=== PATIENT | male | born 1985 ===

== ENCOUNTER 2017-12-01 18:09 | Emergency (ER) | payer SELFPAY ==
[2017-12-01] MEDS ORDERED: Acetaminophen TAB* 325 MG PO ONE (19:18)
--- NOTE | 2017-12-01 19:21 | UC ---
FLU HPI - HPI Summary HPI Summary: body aches and uri sx began last night --today fever increasing, headache and body aches. - History of Current Complaint Chief Complaint: UCGeneralIllness Stated Complaint: COUGH, FEVER, CONGESTION Time Seen by Provider: 12/01/17 19:17 Hx Obtained From: Patient Onset/Duration: Sudden Onset, Lasting Days - 1 Severity Currently: Moderate Severity Initially: Moderate Pain Intensity: 6 Pain Scale Used: 0-10 Numeric Associated Signs & Symptoms: Positive: Fever, Myalgia, Sore Throat, Headache Related Hx: Possible Flu/Infectious Exposure - Allergy/Home Medications Allergies/Adverse Reactions: Allergies Allergy/AdvReac Type Severity Reaction Status Date / Time No Known Allergies Allergy Verified 12/01/17 19:19 Home Medications: Home Medications Ibuprofen TAB* [Motrin TAB* 400 MG] 400 mg PO Q6H PRN 12/01/17 [History Confirmed 12/01/17] PMH/Surg Hx/FS Hx/Imm Hx Previously Healthy: Yes - Surgical History Surgical History: Yes Surgery Procedure, Year, and Place: january 2016 fracture arm - Family History Known Family History: Positive: None - Social History Occupation: Employed Full-time Lives: With Family Alcohol Use: None Substance Use Type: None Smoking Status (MU): Never Smoked Tobacco Review of Systems Constitutional: Fever, Chills, Fatigue Skin: Negative Eyes: Negative ENT: Sore Throat Respiratory: Negative Cardiovascular: Negative Gastrointestinal: Negative Genitourinary: Negative Motor: Negative Neurovascular: Negative Musculoskeletal: Arthralgia, Myalgia Neurological: Headache Psychological: Negative Is Patient Immunocompromised?: No All Other Systems Reviewed And Are Negative: Yes Physical Exam Triage Information Reviewed: Yes Appearance: No Pain Distress, Well-Nourished, Ill-Appearing - mild Vital Signs: Initial Vital Signs Temp 103.6 F 12/01/17 19:15 Pulse 117 12/01/17 19:15 Resp 18 12/01/17 19:15 BP 124/70 12/01/17 19:15 Pulse Ox 97 12/01/17 19:15 Vital Signs Reviewed: Yes Eye Exam: Normal Eyes: Positive: Conjunctiva Clear ENT Exam: Normal ENT: Positive: Normal ENT inspection, Hearing grossly normal, Pharynx normal, Nasal congestion, TMs normal, Uvula midline. Negative: Tonsillar swelling, Trismus, Muffled voice, Hoarse voice, Dental tenderness, Sinus tenderness Dental Exam: Normal Neck exam: Normal Neck: Positive: Supple, Nontender, No Lymphadenopathy Respiratory Exam: Normal Respiratory: Positive: Chest non-tender, Lungs clear, Normal breath sounds, No respiratory distress, No accessory muscle use Cardiovascular Exam: Normal Cardiovascular: Positive: RRR, No Murmur, Pulses Normal, Brisk Capillary Refill Musculoskeletal Exam: Normal Musculoskeletal: Positive: Strength Intact, ROM Intact, No Edema Neurological Exam: Normal Neurological: Positive: Alert, Muscle Tone Normal Psychological Exam: Normal Skin Exam: Normal Diagnostics - Laboratory Diagnostic Studies Completed/Ordered: influenza B (+) Flu Course/Dx - Course Course Of Treatment: rest, tylenol, ibuprofen, tamiflu, increase fluids, follow with pcp or return prn - Differential Dx/Diagnosis Provider Diagnoses: Influenza B Discharge - Discharge Plan Condition: Stable Disposition: AGAINST MEDICAL ADVICE Prescriptions: Oseltamivir Phosphate [Tamiflu] 75 mg PO BID #10 capsule Patient Education Materials: Acetaminophen (By mouth), Ibuprofen (By mouth), Influenza (ED) Print Language: DIVEHI Ref[place]: [facility] [place] [facility] [place] [facility] [place]Outside] - If Needed
[2017-12-01] MEDS ORDERED: Oseltamivir CAP* 75 MG CAP PO ONE (19:43)
== END 2017-12-01 19:50 | disposition left against medical advice (07) ==
LOC: UCCORT 18:09
DX: J10.1 Influenza due to other identified influenza virus with other respiratory manifestations (principal)
CPT/HCPCS: 87502; 99202; A9270-GY; G0463